=== PATIENT | male | born 1995 | race African-American/Black ===

== ENCOUNTER 2022-06-13 12:53 | Emergency (ER) | payer OTHER, SELFPAY ==
[2022-06-13 12:58] VITALS: BP 172/93; PULSE 103; RESP 20; TEMP 36.6; O2SAT 99
--- NOTE | 2022-06-13 13:05 | ECG_ITS ---
Measurements Intervals [place] Rate: 69 P: -9 TN: 132 QRS: 39 QRSD: 81 T: 11 QT: 370 QTc: 397 Interpretive Statements SINUS RHYTHM NORMAL ECG NO PREVIOUS ECG AVAILABLE FOR COMPARISON Electronically Signed On 06-13-2022 15:54:55 CDT by Mainor Romero M.D.
--- NOTE | 2022-06-13 13:22 | ED.GENADULT ---
HPI - General Adult General Chief complaint: Psychiatric Symptoms Stated complaint: SI Time Seen by Provider: 06/13/22 13:01 History of Present Illness HPI narrative: 27-year-old male presenting the emergency department for evaluation of worsening depression and suicidal thoughts. Patient states he has had longstanding issues with depression but has never sought help and has never spoken to a counselor or psychiatrist about this. Patient states over the last few weeks he has had worsening suicidal thoughts. Patient did discuss this with a coworker and he was told to have follow-up with a counselor. Patient presented the emergency department stating that his suicidal ideation has been worsening. Patient does report that he has had increased life stresses including a grandmother who recently . Patient is helping to take care of his grandmother. Patient states he is still suicidal and does still want to . Patient denies having a plan at this time. Patient takes [id number] meds for migraines but denies any other significant past medical history Related Data Allergies Allergy/AdvReac Type Severity Reaction Status Date / Time No Known Allergies Allergy Verified 06/13/22 12:53 Review of Systems Review of Systems: CONSTITUTIONAL: Denies fever, chills, or sweats. EYES: Denies visual changes, redness, or discharge. ENT: Denies rhinorrhea, congestion, sore throat, or otalgia. CARDIOVASCULAR: Denies chest pain, palpitations, or edema. RESPIRATORY: Denies cough or dyspnea. GASTROINTESTINAL: Denies abdominal pain, nausea, vomiting, or diarrhea. GENITOURINARY: Denies dysuria or hematuria. SKIN: Denies rash or itching. MUSCULOSKELETAL: Denies back pain, joint pain, or myalgia. NEUROLOGIC: Denies headache, numbness, or weakness. PSYCHIATRIC: Depression and suicidal thoughts, see HPI PMFSH Social History Social History Substance use type: does not use Exam Narrative: APPEARANCE: Well appearing, no pain, no distress, well-nourished. HEAD: normocephalic, atraumatic. EYES: PERRLA/EOMI, conjunctivae clear. NOSE: Normal no drainage NECK: Supple. No adenopathy, no masses. RESPIRATORY: Airway patent, respirations nonlabored. Clear to auscultation bilaterally, no rales, rhonchi, wheezing. CARDIOVASCULAR: Regular rate and rhythm without murmurs rubs or gallops. ABDOMINAL: Soft, nontender, nondistended, normal bowel sounds MUSCULOSKELETAL: Moves all extremities. Strength/ROM intact, No edema, No calf tenderness. NEURO: Alert. Cranial nerves II through XII intact. Grossly intact SKIN: Warm, dry. Normal Color PSYCHIATRIC: Flat affect Course Course Emergency Course: Patient was evaluated by the crisis counselor and patient did agree for voluntary inpatient psychiatric placement. At time of signout availability is pending. Reevaluation(s) Reevaluation #1: Patient is medically cleared to be evaluated by the crisis counselor. Patient is medically cleared for inpatient psychiatric placement as needed. Vital Signs Vital signs: Vital Signs Temperature 97.8 F 06/13/22 12:58 Pulse Rate 103 H 06/13/22 12:58 Respiratory Rate 20 06/13/22 12:58 Blood Pressure 172/93 H 06/13/22 12:58 Pulse Oximetry 99 06/13/22 12:58 Oxygen Delivery Room Air 06/13/22 12:58 Temperature 97.8 F 06/13/22 12:58 Pulse Rate 103 H 06/13/22 12:58 Respiratory Rate 20 06/13/22 12:58 Blood Pressure 172/93 H 06/13/22 12:58 Pulse Oximetry 99 06/13/22 12:58 Oxygen Delivery Room Air 06/13/22 12:58 Medical Decision Making Vital Signs Vital Signs: Vital Signs Temperature 97.8 F 06/13/22 12:58 Pulse Rate 103 H 06/13/22 12:58 Respiratory Rate 20 06/13/22 12:58 Blood Pressure 172/93 H 06/13/22 12:58 Pulse Oximetry 99 06/13/22 12:58 Oxygen Delivery Room Air 06/13/22 12:58 Temperature 97.8 F 06/13/22 12:58 Pulse Rate 103 H 06/13/22 12:58 Respiratory Rate 20 06/13/22 12:58 Blood Pressur
[2022-06-13 13:37] LABS: Basophils Percent Auto 0.3 % (0.2-1.2); Eosinophils Percent Auto 0.4 % (0-4.4); Hematocrit 41.2 % (42.0-52.0); Hemoglobin 14.8 g/dL (14.0-18.0); Immature Granulocyte Absolute 0.02 K/mm3 (0.00-0.031); Immature Granulocyte Percent A 0.3 % (0-0.5); Lymphocytes Absolute Auto 0.96 K/mm3 (0.9-3.2); Lymphocytes Percent Auto 13.7 % (18.3-44.2); Mean Corpuscular HGB Conc 35.9 g/dl (32-36); Mean Corpuscular Hemoglobin 32.7 pg (26-34); Mean Corpuscular Volume 91.2 fl (80-100); Mean Platelet Volume 9.8 fl (7.4-10.4); Monocytes Absolute Auto 0.3 K/mm3 (0.1-0.6); Monocytes Percent Auto 4.7 % (2.6-8.5); Neutrophils Absolute Auto 5.7 K/mm3 (1.3-6.7); Neutrophils Percent Auto 80.6 % (45.5-73.1); Platelet Count Result 162 k/mm3 (150-375); Red Blood Count 4.52 M/mm3 (4.6-6.20); Red Cell Distribution Width 12.3 % (11.5-14.5)
[2022-06-13 13:49] LABS: Acetaminophen < 10 ug/mL (10-30); Ethanol < 10 mg/dL (<10); Salicylate < 1.0 mg/dL (2-20)
[2022-06-13 13:50] LABS: Alanine Aminotransferase 18 U/L (6-50); Albumin Level 4.8 g/dL (3.5-5.1); Alkaline Phosphatase 70 U/L (38-126); Anion Gap 9 mmol/L (8-16); Aspartate Amino Transferase 26 U/L (17-59); Bilirubin,Total 1.3 mg/dL (0.2-1.3); Blood Urea Nitrogen 11 mg/dL (9-20); Calcium 9.1 mg/dL (8.4-10.2); Carbon Dioxide 25 mmol/L (22-30); Chloride 106 mmol/L (98-107); Estimated CRCL calculation 100 ml/min; Estimated Glomerular Filt Rate > 60; Glucose 102 mg/dL (65-110); Potassium 3.7 mmol/L (3.4-5.0); Sodium 140 mmol/L (137-145)
[2022-06-13 13:59] LABS: Add Urine Microscopic? YES; Appearance Urine Cloudy (Clear); Bilirubin Urine Negative (Negative); Blood Urine Negative (Negative); Color Urine Yellow (Yellow); Glucose Urine UA Negative (Negative); Ketones Urine Negative (Negative); Leukocyte Esterase Ur Negative LEU/UL (Negative); Mucus Urine Rare /lpf; Nitrate Urine Negative (Negative); Protein Urine 1+ mg/dL (Negative); RBC Urine 0-2 /hpf (0-2); Specific Grav Ur 1.017 (1.001-1.035); Squamous Epithelial Cell Urine Rare /hpf (Few); Urobilinogen Urine Negative mg/dL (<2.0); WBC Urine 0-3 /hpf
[2022-06-13 14:17] LABS: SARS-CoV-2 RNA PCR Negative
[2022-06-13 14:20] LABS: Thyroid Stimulating Hormone 0.792 uIU/mL (0.465-4.680)
[2022-06-13 14:27] LABS: Amphetamine Screen Urine Negative (Negative); Barbiturate Screen Urine Negative (Negative); Benzodiazepines Screen Urine Negative (Negative); Cannabinoid Screen Urine Negative (Negative); Cocaine Screen Urine Negative (Negative); Methadone Screen Urine Negative (Negative); Opiate Screen Urine Negative (Negative); Phencyclidine Screen Urine Negative (Negative)
--- NOTE | 2022-06-13 14:31 | PC.NURSE ---
crisis notified at this time. There is one more outreach before us so it could be up to 2 hours before they arrive to evaluate this pt.
--- NOTE | 2022-06-13 18:54 | PC.NURSE ---
Radha requested this facility have EDP CHANGE medical clearance statement, fax pt's UDS, entire SSN#, and last set of vitals. Obtained, and given to ED clerical secretary to fax. [phone].
--- NOTE | 2022-06-13 20:04 | PC.NURSE ---
pt accepted to [facility] [address] crisostomo is accepting. Charge Elizabeth called report to Nurse Chavez YODER.
== END 2022-06-13 22:38 ==
PROVIDERS: Emergency Provider Emergency Medicine
DX: F32.A Depression, unspecified (principal); R45.851 Suicidal ideations; Z20.822 Contact with and (suspected) exposure to COVID-19
CPT/HCPCS: 36415; 80053; 80307; 81001; 84443; 85025; 93005; 99285; C9803; U0003; U0005